=== PATIENT | male | born 1995 | race Hispanic/Latino ===

== ENCOUNTER 2018-02-22 12:15 | Emergency (ER) | payer OTHER | END 2018-02-22 13:30 | disposition home or self-care (01) | LOC: M ED 12:15 | DX: M25.571 Pain in right ankle and joints of right foot (principal); F17.200 Nicotine dependence, unspecified, uncomplicated; Z91.040 Latex allergy status | CPT/HCPCS: 73630 ==

== ENCOUNTER → 2018-06-22 | Outpatient (CLI) | payer OTHER ==
[~2018-06-22] MED LIST: ACET650S3 PR; AMOX500T PO; IBUP-1022 PO
--- NOTE | 2018-06-22 14:06 | REP ---
Clinical: Trauma. Technique: AP, lateral, bilateral oblique views right hand . Findings: Oblique and lateral views best demonstrate a complex hamate bone fracture. No other fracture dislocation is appreciated. Impression: Complex fracture of the hamate bone best identified on oblique and lateral views. Electronically Signed by Jose Serrano MD 06/22/2018 01:58 P
== END ==
LOC: M LRY 13:35
PROVIDERS: ATTEND Physician Assistant
DX: S62.141A Displaced fracture of body of hamate [unciform] bone, right wrist, initial encounter for closed fracture (principal); X58.XXXA Exposure to other specified factors, initial encounter; Y92.9 Unspecified place or not applicable

== ENCOUNTER → 2018-06-26 | Outpatient (CLI) | payer OTHER ==
--- NOTE | 2018-06-26 09:00 | REP ---
CT STUDY OF THE RIGHT HAND WITHOUT CONTRAST: HISTORY: Surgical evaluation. Fracture involving the right hamate. Comparison right hand radiographs are compared from June 22, 2018 and January 26, 2017. TECHNIQUE: Helical scanning is acquired. 2 mm axial images are reformatted. Coronal and sagittal planar reformation images are generated and reviewed. Surface rendered 3D images are generated. CT FINDINGS: The study confirms a severely comminuted fracture of the dorsal and distal portion of the hamate bone. There is dorsal displacement. There is dorsal dislocation of the 4th and 5th carpometacarpal articulations associated with this injury. There is a small fracture fragment volar to the proximal end of the dislocated 4th metacarpal which may be a 4th metacarpal origin avulsion fracture. No other metacarpal fracture fragment is appreciated. The hook of the hamate is intact. No dislocation is seen in the carpal bones. Radiocarpal and intercarpal articulations appear intact. No other carpal bone fracture is seen. IMPRESSION: Fracture dislocation at the 4th and 5th carpometacarpal articulation with dorsal displacement, dorsal and distal hamate bone comminution. Electronically Signed by Rakesh Jose MD 06/26/2018 09:34 A
== END ==
LOC: M RAD 07:19
PROVIDERS: ATTEND Orthopaedic Surgery
DX: Z01.818 Encounter for other preprocedural examination (principal); S62.141A Displaced fracture of body of hamate [unciform] bone, right wrist, initial encounter for closed fracture; Y93.89 Activity, other specified; Y92.89 Other specified places as the place of occurrence of the external cause; Y99.8 Other external cause status; W22.8XXA Striking against or struck by other objects, initial encounter